=== PATIENT | male | born 1940 | race Caucasian/White ===

== ENCOUNTER → 2020-06-08 07:25 | Outpatient (CLI) | payer MEDICARE, MEDICAID, SELFPAY ==
--- NOTE | 2020-06-08 07:38 | CT_ITS ---
PROCEDURE: CT SINUS WO CON CLINICAL HISTORY: CONTUSION,FALL Posttraumatic pain and swelling COMPARISON: CT CT HEAD/BRAIN WO CON from 06/08/2020 TECHNIQUE: Axial images obtained with sagittal and coronal reformats. All CT scans at the facility use one or more dose reduction, viz: automated exposure control, ma/kV adjustment per patient size (including targeted exams where dose is matched to indication, i.e. head), or iterative reconstruction technique. FINDINGS: Motion artifact does obscure fine detail despite repeating the exam. Comminuted fracture involves the nasal bone which is probably better seen on the head CT. There is mild rightward angulation of the distal fracture fragments. No sinus air-fluid level. Cannot adequately evaluate for infraorbital fracture. The supraorbital region has an unremarkable appearance. Significant motion artifact of the maxilla and mandible. IMPRESSION: Limited exam. Comminuted nasal bone fracture. The infraorbital region and mandible is not well evaluated due to motion. Dictated by: Billy Pickett MD 06/08/2020 10:38 Billy Pickett MD in [facility] 06/08/2020 10:38
--- NOTE | 2020-06-08 07:38 | CT_ITS ---
PROCEDURE: CT HEAD/BRAIN WO CON CLINICAL INDICATION: Head injury with headache/pain, contusion, abrasion or hematoma COMPARISON: CT CT SINUS WO CON from 06/08/2020 TECHNIQUE: Axial images obtained. All CT scans at the facility use one or more dose reduction, viz: automated exposure control, ma/kV adjustment per patient size (including targeted exams where dose is matched to indication, i.e. head), or iterative reconstruction technique. FINDINGS: No midline shift, mass effect, intracranial hemorrhage, hydrocephalus, or extra-axial fluid collection is evident. There is generalized atrophy with hypoattenuation of the periventricular white matter consistent with microangiopathic changes. There are encephalomalacia changes in the left occipital lobe. The calvarium has an unremarkable appearance. No mastoid effusion. No sinus air-fluid level. There is mild soft tissue swelling in the supraorbital region on both sides. Nasal bone fracture is noted. IMPRESSION: No acute intracranial finding Nasal bone fracture Dictated by: Billy Pickett MD 06/08/2020 10:34 Billy Pickett MD in [facility] 06/08/2020 10:34
[2020-06-08 10:54] LABS: Anion Gap 13.1 mEq/L (5-15); Blood Urea Nitrogen 34 mg/dl (9-20); Calcium 9.7 mg/dl (8.4-10.2); Carbon Dioxide 31 mmol/L (22.0-30.0); Chloride 96 mmol/L (98-107); Estimated Glomerular Filt Rate 53 ml/min (>60); GFR (African American) 64 ML/MIN (>60); Glucose 85 mg/dl (74-100); Potassium 4.1 mmoL/L (3.5-5.1); Sodium 136 mmol/L (136-145)
== END ==
PROVIDERS: Nurse Practitioner Family; Visit Provider Internal Medicine Adolescent Medicine
DX: S00.10XA Contusion of unspecified eyelid and periocular area, initial encounter (principal); R41.0 Disorientation, unspecified; W19.XXXA Unspecified fall, initial encounter
CPT/HCPCS: 36415; 70450; 70486; 80048

== ENCOUNTER → 2020-06-26 09:24 | Outpatient (CLI) | payer MEDICARE, MEDICAID, SELFPAY ==
[2020-06-26 14:04] LABS: Chol/HDL Ratio 3.1 (1-3.5); Cholesterol 194 mg/dl (140-200); HDL Cholesterol 63 mg/dl (40-60); Triglycerides 84 mg/dl (30-150); VLDL Cholesterol 17 mg/dL (0-40)
[2020-06-26 14:11] LABS: Basophils % 0.3 % (0.1-2.0); Eosinophils # 0.4 K/mm3 (0.0-0.4); Eosinophils % 4.3 % (0.1-12.0); Hematocrit 33.8 % (42.0-52.0); Hemoglobin 10.9 g/dL (14.1-18.0); Lymphocytes # 0.7 K/mm3 (0.7-4.5); Lymphocytes % 8.4 % (10-50); Mean Corpuscular HGB Conc 32.3 g/dL (31.8-35.4); Mean Corpuscular Hemoglobin 29.8 pg (27.0-31.2); Mean Corpuscular Volume 92.1 fl (80-94); Mean Platelet Volume 8.5 fl (7.4-10.4); Monocytes # 0.5 K/mm3 (0.1-1.0); Monocytes % 6.1 % (1.7-9.3); Neutrophils # 6.6 K/mm3 (1.8-7.8); Neutrophils % 80.9 % (37.0-80.0); Platelet Count 227 K/mm3 (142-424); Red Blood Count 3.66 M/mm3 (4.60-6.20); Red Cell Distribution Width 14.5 % (11.5-17.5); White Blood Count 8.2 K/mm3 (4.8-10.8)
[2020-06-26 14:15] LABS: Direct LDL Cholesterol 108.59 mg/dL (100-129)
[2020-06-26 14:50] LABS: Hemoglobin A1C 5.4 % (4.0-6.0)
[2020-07-06 04:58] LABS: Levetiracetam (Keppra) 32.3 ug/mL (10.0-40.0)
== END ==
PROVIDERS: Visit Provider Nurse Practitioner Family
DX: I10 Essential (primary) hypertension (principal); E78.5 Hyperlipidemia, unspecified; G40.909 Epilepsy, unspecified, not intractable, without status epilepticus; Z79.899 Other long term (current) drug therapy
CPT/HCPCS: 36415; 80061; 80177; 83036; 85025

== ENCOUNTER 2020-08-13 13:14 | Inpatient (IN) | payer MEDICARE, MEDICAID, SELFPAY ==
[2020-08-13] VITALS (27 sets, daily range): BP systolic 78–158; BP diastolic 0–108; PULSE 42–125; RESP 14–26; TEMP 32.1–35.9; O2SAT 81–100; BMI 38.0; BMI 43.0
--- NOTE | 2020-08-13 13:16 | XR_ITS ---
PROCEDURE: XR CHEST PORTABLE CLINICAL HISTORY: hypoxia COMPARISON: No exams were available for comparison FINDINGS: There are low lung volumes. There is mild cardiomegaly without failure. Increased density is present in the right mid lung suggesting atelectasis. Consolidation noted in both lower lobes consistent with bilateral lower lobe pneumonia. IMPRESSION: Low lung volumes with bilateral lower lobe airspace disease/pneumonia and atelectatic change in the right midlung Dictated by: Billy Pickett MD 08/13/2020 13:47 Billy Pickett MD in [facility] 08/13/2020 13:47
--- NOTE | 2020-08-13 13:16 | CT_ITS ---
PROCEDURE: CT HEAD/BRAIN WO CON CLINICAL INDICATION: ams Altered mental status, altered level of consciousness, confusion, disorientation COMPARISON: CT CT HEAD/BRAIN WO CON from 06/08/2020 TECHNIQUE: Axial images obtained. All CT scans at the facility use one or more dose reduction, viz: automated exposure control, ma/kV adjustment per patient size (including targeted exams where dose is matched to indication, i.e. head), or iterative reconstruction technique. FINDINGS: No midline shift, mass effect, intracranial hemorrhage, hydrocephalus, or extra-axial fluid collection is evident. There is generalized atrophy with hypoattenuation of the periventricular white matter consistent with microangiopathic changes.. 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 No mastoid effusion. No sinus air-fluid level. IMPRESSION: No acute intracranial finding Dictated by: Billy Pickett MD 08/13/2020 15:52 Billy Pickett MD in [facility] 08/13/2020 15:52
--- NOTE | 2020-08-13 13:18 | HMH.EDGENADL ---
ED Disposition Clinical Impression: Severe sepsis, Hyponatremia, Acute kidney injury Altered mental status Qualifiers: Altered mental status type: delirium Qualified Code(s): R41.0 - Disorientation, unspecified Disposition: Admitted As Inpatient Condition on Discharge: Fair Referrals: PCP,No [Non-Staff] - - Critical Care Critical Care Time: No Attestation: On , the high probability of a clinically significant, sudden or life threatening deterioration of the following system(s) required my full and direct attention, intervention and personal management. The time I documented below is in addition to time spent performing reported procedures but includes the following listed in this critical care notation. Medical Decision Making - Medical Records Medical records reviewed: Yes: I reviewed the patient's medical records. - Mitchell Inquiry Pt receiving controlled substance: No Vital Signs: 08/13/20 13:15 08/13/20 14:30 08/13/20 14:45 Temperature 96.6 F L Temperature Source Temporal Artery Scan Pulse Rate 76 74 Pulse Rate [Left Radial] 88 Respiratory Rate 26 H 19 20 Blood Pressure 114/48 L 105/68 L Blood Pressure [Right Arm] 105/68 L Blood Pressure Mean [Right Arm] 80 Blood Pressure Source Blood Pressure Source [Right Arm] Automatic Cuff Blood Pressure Position [Right Arm] Sitting 02 Sat by Pulse Oximetry 99 97 96 Oxygen Delivery Method Non-Rebreather Nasal Cannula Nasal Cannula Oxygen Flow Rate (LPM) 15 4 4 08/13/20 16:16 Temperature Temperature Source Pulse Rate 84 Pulse Rate [Left Radial] Respiratory Rate Blood Pressure 118/82 Blood Pressure [Right Arm] Blood Pressure Mean [Right Arm] Blood Pressure Source Automatic Cuff Blood Pressure Source [Right Arm] Blood Pressure Position [Right Arm] 02 Sat by Pulse Oximetry 91 L Oxygen Delivery Method Nasal Cannula Oxygen Flow Rate (LPM) - Lab Data Lab Results 08/13/20 13:16: Specimen Source Right radial, O2 % 5 lpm nc, ABG pH 7.36, ABG pCO2 28.9 L, ABG pO2 96.1, ABG HCO3 15.9 L, ABG Total CO2 16.8 L, ABG O2 Saturation 97, ABG Base Excess -9.6 L, Billy Test Patient unable 08/13/20 13:25: Urine Color Yellow, Urine Appearance Clear, Urine pH 7.0, Ur Specific [place] 1.020, Urine Protein 2+, Urine Glucose (UA) Negative, Urine Ketones Negative, Urine Blood 3+, Urine Nitrate Negative, Urine Bilirubin Negative, Urine Urobilinogen 0.2, Ur Leukocyte Esterase 2+ A, Urine RBC Occasional, Urine WBC Tntc, Urine Bacteria 1+ 08/13/20 13:50: WBC 13.0 H, RBC 3.93 L, Hgb 11.0 L, Hct 33.0 L, MCV 84.0, MCH 28.0, MCHC 33.3, RDW 15.4, Plt Count 208, MPV 9.6, Neut % (Auto) 94.0 H, Lymph % (Auto) 2.8 L, [place] % (Auto) 2.9, Eos % (Auto) 0.3, Baso % (Auto) 0.0 L, Neut # (Auto) 12.2 H, Lymph # (Auto) 0.4 L, [place] # (Auto) 0.4, Eos # (Auto) 0.0, Baso # (Auto) 0.0, Total Counted 100, Neutrophils % (Manual) 93 H, Lymphocytes % (Manual) 2 L, Monocytes % (Manual) 4, Eosinophils % (Manual) 1, Platelet Estimate Normal, RBC Morphology Normal, Acanthocytes (Spur) 1+ 08/13/20 13:50: Sodium 123 L, Potassium 5.2 H, Chloride 91 L, Carbon Dioxide 17 L, Anion Gap 20.2 H, BUN 88 H, Creatinine 4.60 H, Estimated Creat Clear 13, Estimated GFR 12 L*, Est GFR ( Amer) 15 L*, Glucose 78, Calcium 9.1, Total Bilirubin 1.2, AST 65 H, ALT 42, Alkaline Phosphatase 224 H, Troponin I < 0.01, Total Protein 6.5, Albumin 3.3 L, Globulin 3.2, Albumin/Globulin Ratio 1.0 L 08/13/20 13:50: Lactate 2.2 H Result diagrams: 08/13/20 13:50 08/13/20 13:50 Orders (Tests/Meds): ED MEDICATIONS Generic Name Dose Route Start Last Admin Trade Name Freq PRN Reason Stop Dose Admin Ceftriaxone Sodium 2 gm/ 100 mls @ 200 mls/hr 08/13/20 13:30 08/13/20 14:13 Sodium Chloride IV 08/27/20 13:29 200 mls/hr Q24H TEMO Administration Protocol Sodium Chloride 1,000 mls @ 999 mls/hr 08/13/20 15:30 08/13/20 15:30 Sod Chlor 0.9% 1000ml Bag IV 08/13/20 16:30 999 mls/hr .Q1H1M TEMO A
[2020-08-13 13:34] LABS: Microscopic, Urine URINE MICROSCOPIC (MICROSCOPIC)
[2020-08-13 13:41] LABS: ABG Base Excess -9.6 mmol/L (-2.4-2.3); ABG HCO3 15.9 mmhg (22.0-26.0); ABG Oxygen Saturation 97 % (90-100); ABG PCO2 28.9 mmhg (35.0-45.0); ABG PH 7.36 mmol/L (7.35-7.45); ABG PO2 96.1 mmhg (80-100); ABG TCO2 16.8 mmhg (23-27)
[2020-08-13 13:44] LABS: Allen's Test Patient Unable; Oxygen 5 LPM NC %; Source Right Radial
[2020-08-13 14:20] LABS: Eosinophils % 0.3 % (0.1-12.0); Lymphocytes # 0.4 K/mm3 (0.7-4.5); Lymphocytes % 2.8 % (10-50); Mean Corpuscular HGB Conc 33.3 g/dL (31.8-35.4); Mean Platelet Volume 9.6 fl (7.4-10.4); Monocytes # 0.4 K/mm3 (0.1-1.0); Monocytes % 2.9 % (1.7-9.3); Neutrophils # 12.2 K/mm3 (1.8-7.8); Platelet Count 208 K/mm3 (142-424); Red Blood Count 3.93 M/mm3 (4.60-6.20); Red Cell Distribution Width 15.4 % (11.5-17.5)
[2020-08-13 14:23] LABS: MANUAL DIFFERENTIAL MANUAL DIFFERENTIAL (MANUAL DIFF)
[2020-08-13 14:27] LABS: Lactic Acid 2.2 mmol/L (0.7-2.1)
[2020-08-13 14:27] LABS: Appearance,Urine CLEAR (Clear); Blood, Urine 3+ (Negative); Color,Urine YELLOW (Yellow); Glucose,Urine (UA) Negative (Negative); Ketones,Urine Negative (Negative); Leukocyte Esterase,Urine 2+ (Negative); Nitrate,Urine Negative (Negative); Protein,Urine 2+ (Negative); Urobilinogen,Urine 0.2 EU/dl (0.2)
[2020-08-13 14:30] LABS: Bilirubin,Urine Negative (Negative)
[2020-08-13 14:31] LABS: Chloride 91 mmol/L (98-107); Sodium 123 mmol/L (136-145)
[2020-08-13 14:32] LABS: Potassium 5.2 mmoL/L (3.5-5.1)
[2020-08-13 14:34] LABS: Alanine Aminotransferase 42 U/L (12-78); Albumin Level 3.3 g/dl (3.5-5.0); Alkaline Phosphatase 224 U/L (38-126); Anion Gap 20.2 mEq/L (5-15); Aspartate Amino Transferase 65 U/L (17-59); Bilirubin,Total 1.2 mg/dl (0.2-1.3); Carbon Dioxide 17 mmol/L (22.0-30.0); Creatinine Clearance Estimated 13 mL/min (50-200); Estimated Glomerular Filt Rate 12 ml/min (>60); GFR (African American) 15 ML/MIN (>60); Globulin 3.2 g/dL (1.3-3.2); Total Protein,Serum 6.5 g/dl (6.3-8.2)
[2020-08-13 14:35] LABS: Calcium 9.1 mg/dl (8.4-10.2); Glucose 78 mg/dl (74-100)
[2020-08-13 14:37] LABS: Blood Urea Nitrogen 88 mg/dl (9-20)
[2020-08-13 14:39] LABS: Bacteria,Urine 1+ /lpf; RBC,Urine Occasional #/hpf (0-3); WBC,Urine TNTC #/hpf (0-3)
[2020-08-13 14:47] LABS: Troponin I < 0.01 ng/ml (0.00-0.034)
[2020-08-13 14:56] LABS: Acanthocytes 1+; Eosinophils % 1 % (0-3); Lymphocytes % 2 % (10-50); Monocytes % 4 % (2-9); Neutrophils % 93 % (42-76); Total Cells Counted 100
[2020-08-13 14:57] LABS: Platelet Estimate Normal; RBC Morphology Normal
--- NOTE | 2020-08-13 16:15 | PC.NURSE ---
bath mix operator paging solar field installation crew member (Dr. Chong) for Dr. Murray
--- NOTE | 2020-08-13 16:50 | PC.NURSE ---
UNABLE TO OBTAIN REPEAT LACTIC AFTER MULTIPLE ATTEMPTS , DUE TO BEING A HARD STICK. LAB IS GONNA TRY TO OBTAIN
[2020-08-13 17:35] LABS: Troponin I < 0.01 ng/ml (0.00-0.034)
[2020-08-13 18:11] LABS: Reflex Lactic Add Lactic Reflex
[2020-08-13 20:05] LABS: Lactic Acid Follow Up (RFLX 1) 1.9 mmol/L (0.7-2.1)
--- NOTE | 2020-08-13 20:54 | PC.NURSE ---
PT ARRIVED TO THE FLOOR AT 1847. WHILE MOVING PT FROM BED FROM STRETCHER PT WAS VERY COOL TO TOUCH AND EXTREMELY LETHARGIC. RECTAL TEMP WAS 89.8 AND BP WAS 78/PALP. ROB HUGGER WAS APPLIED AND WAS NOTIFIED. ORDERS RECEIVED ( IVF BOLUS, LEVOPHED DRIP AND LR @ 200 ML'S/HR) PT WAS TRANSFERRED TO STEP DOWN UNIT. PT'S BROTHER WHO IS PT'S POA STATED THAT PT WOULD BE A DNR BUT HE IS OKAY WITH STARTING PT ON VASOPRESSORS TO INCREASE BP AND THE ROB HUGGER TO TREAT HYPOTHERMIA. REPORT GIVEN FROM THE ED ALL VITAL SIGNS WERE STABLE. ACCORDING TO PT'S BROTHER PT IS USUALLY VERY TALKATIVE AND ALERT WHEN HE IS AT HIS BASELINE. REPORT HANDOFF TO ADIEL FRAZIER RN.
[2020-08-13 21:36] LABS: POC Glucose,Bedside 90 (70-110)
--- NOTE | 2020-08-13 23:14 | ECG_ITS ---
APPROVED REPORT Exam: Resting ECG HR:125 bpm ECG Measurements Heart Rate 125 AXES QRSd 84 QRS 64 QT 358 T -57 QTc 516 Conclusion Atrial fibrillation with rapid ventricular response Low voltage QRS ST & T wave abnormality, consider inferior ischemia or digitalis effect ST & T wave abnormality, consider anterior ischemia or digitalis effect Abnormal ECG Electronically signed by : Estrada Murray, 08/20/2020 18:06:21
--- NOTE | 2020-08-13 23:40 | PC.NURSE ---
He is restless and confused. Does not answer questions. Continuously trying to take off oxygen. He is on the oren paw r/t hypothermia. Unable to take pics at this time r/t hypothermia. Consent for pics and DNR on chart. He continues on levophed. Receiving oxygen via 50% venti at this time.
[2020-08-14] VITALS (34 sets, daily range): BP systolic 47–175; BP diastolic 25–145; PULSE 40–140; RESP 0–24; TEMP 34.3–36.6; O2SAT 86–96
--- NOTE | 2020-08-14 05:14 | PC.NURSE ---
DIDNT GET WEIGHT ON PATIENT DUE TO KEEPING THE BLANKETS ON TO WARM PATIENT UP.KM
[2020-08-14 05:59] LABS: Basophils % 0.1 % (0.1-2.0); Eosinophils # 0.1 K/mm3 (0.0-0.4); Eosinophils % 0.6 % (0.1-12.0); Hematocrit 32.8 % (42.0-52.0); Hemoglobin 10.9 g/dL (14.1-18.0); Lymphocytes # 0.4 K/mm3 (0.7-4.5); Lymphocytes % 2.3 % (10-50); Mean Corpuscular HGB Conc 33.1 g/dL (31.8-35.4); Mean Corpuscular Hemoglobin 27.8 pg (27.0-31.2); Mean Corpuscular Volume 84.1 fl (80-94); Mean Platelet Volume 9.5 fl (7.4-10.4); Monocytes # 0.6 K/mm3 (0.1-1.0); Monocytes % 3.6 % (1.7-9.3); Neutrophils # 15.7 K/mm3 (1.8-7.8); Neutrophils % 93.5 % (37.0-80.0); Platelet Count 268 K/mm3 (142-424); Red Cell Distribution Width 15.4 % (11.5-17.5); White Blood Count 16.8 K/mm3 (4.8-10.8)
[2020-08-14 06:02] LABS: MANUAL DIFFERENTIAL MANUAL DIFFERENTIAL (MANUAL DIFF)
[2020-08-14 06:06] LABS: Chloride 95 mmol/L (98-107); Potassium 5.6 mmoL/L (3.5-5.1); Sodium 127 mmol/L (136-145)
[2020-08-14 06:09] LABS: Alanine Aminotransferase 45 U/L (12-78); Albumin Level 3.3 g/dl (3.5-5.0); Albumin/Globulin Ratio 1.1 (1.1-1.8); Alkaline Phosphatase 238 U/L (38-126); Anion Gap 20.6 mEq/L (5-15); Aspartate Amino Transferase 68 U/L (17-59); Bilirubin,Total 0.9 mg/dl (0.2-1.3); Carbon Dioxide 17 mmol/L (22.0-30.0); Creatinine Clearance Estimated 23 mL/min (50-200); Estimated Glomerular Filt Rate 12 ml/min (>60); GFR (African American) 15 ML/MIN (>60); Globulin 3.1 g/dL (1.3-3.2); Total Protein,Serum 6.4 g/dl (6.3-8.2)
[2020-08-14 06:10] LABS: Calcium 8.9 mg/dl (8.4-10.2); Glucose 80 mg/dl (74-100)
[2020-08-14 06:16] LABS: Blood Urea Nitrogen 88 mg/dl (9-20)
[2020-08-14 07:01] LABS: POC Glucose,Bedside 85 (70-110)
--- NOTE | 2020-08-14 07:26 | HMH.PHAVTE ---
[facility] Pharmacy VTE Monitoring - Patient Demographics Admission date: 08/13/20 Report Date: 08/14/20 Time: 07:26 Allergies/Adverse Reactions: Patient Allergies No Known Allergies Allergy (Verified 08/13/20 21:53) Height: 1.83 m Weight: 127.006 kg Patient Problems: Current Active Problems Severe sepsis (Acute) Altered mental status (Acute) Hyponatremia (Acute) Acute kidney injury (Acute) - VTE Risk Labs: VTE Related Lab Results Hgb 10.9 g/dL (14.1-18.0) L 08/14/20 05:38 Hct 32.8 % (42.0-52.0) L 08/14/20 05:38 Plt Count 268 K/mm3 (142-424) D 08/14/20 05:38 BUN 88 mg/dl (9-20) H 08/14/20 05:38 Creatinine 4.60 mg/dl (0.66-1.25) H 08/14/20 05:38 Estimated Creat Clear 23 mL/min (50-200) 08/14/20 05:38 VTE Score: 3 VTE Risk Level: Low Risk - Prophylaxis VTE Prophylaxis Ordered?: Yes Types of VTE Prophylaxis: TEDS Knee High Location of Applied Device: Bilateral Lower Extremeties
--- NOTE | 2020-08-14 07:51 | HMH.PHAINT ---
MEDICATION RECONCILIATION COMPLETED USING EXTERNAL FILL HISTORY AND PENITENTIARY MAR
--- NOTE | 2020-08-14 07:54 | HMH.HP ---
*Admission Date: 08/13/20 *Chief complaint: sepsis *History of present illness: 80-year-old gentleman who is a resident of [facility]. History of multiple chronic comorbidities, debility, wheelchair/bedbound. Presented to the ER from the half-way due to concern for worsening confusion/poorly responsive to verbal or painful stimuli. Additionally patient had a decrease in body temperature and suspicion for UTI. Reportedly he had had some gradual worsening clinically over the weekend but symptoms most apparent yesterday. Brought to the ER via EMS. On arrival found to be in septic shock. Initial labs showed acute renal failure with creatinine greater than 4, tachycardia, hypothermic, elevated white cell count, urine grossly abnormal concerning for infection. He was initially treated with ceftriaxone, 2 L bolused IV fluids, and admitted for septic shock. On assessment this morning, patient had been started on Levophed overnight for persistent hypotension. He remains tachycardic blood pressure improving but still hypothermic. Unable to respond to questions. Appears agitated but obtunded. Appropriate saturations in the mid 90s on 50% Ventimask. Very minimal urine output obtained via [place] catheter, urine quite dark and cloudy. [facility] History I have reviewed the patient's past medical history: Yes Medical History: Reports:: Atrial Fibrillation, Gastroesophageal Reflux Disease(GERD), Hyperlipidemia, Hypertension Denies:: Cancer, Diabetes Mellitus Type 1, Diabetes Mellitus Type 2, MRSA *Have you ever received a pneumonia vaccine?: Yes *Have you received a flu vaccine this season?: Yes Other Medical History: Reports: Other (GOUT) Laterality Cases: Right: Arthroscopy Knee Other Surgeries: Yes: Appendectomy Amputation: No Fractures: No - *Social History Smoking Status: Former smoker Alcohol Intake: never *Occupational Status:: disabled Housing: half-way *Travel in the last 8 weeks: None Family Hx:: Unable to obtain Review of Systems - Review of Systems Review of systems:: unable to obtain, pertinent systems reviewed and negative unless documented below (reviewed per chart, unable to obtain per patient) Meds Home Medications Medication Instructions Recorded Confirmed Type allopurinol 100 mg tablet 100 mg PO DAILY 06/19/20 08/13/20 History amlodipine 5 mg tablet 5 mg PO DAILY 06/19/20 08/13/20 History cholecalciferol (vitamin D3) 25 25 mcg PO DAILY 06/19/20 08/13/20 History mcg (1,000 unit) capsule famotidine 20 mg tablet 20 mg PO DAILY 06/19/20 08/13/20 History furosemide 40 mg tablet 40 mg PO 0900 06/19/20 08/14/20 History polyethylene glycol 3350 17 17 g PO DAILY 06/19/20 08/13/20 History gram/dose oral powder Cetirizine HCl [Zyrtec 10mg ODT*] 10 mg PO DAILY 08/13/20 08/13/20 History Furosemide [Furosemide 20mg Tab*] 20 mg PO 1700 08/13/20 08/14/20 History Melatonin 5 mg PO HS 08/13/20 08/13/20 History Oxybutynin Chloride 5 mg PO BID 08/13/20 08/13/20 History levETIRAcetam [Keppra 500mg tablet] 500 mg PO BID 08/13/20 08/13/20 History Ibuprofen [Ibuprofen 400mg 400 mg PO Q6H PRN 08/14/20 08/14/20 History Tablet] Sodium Chloride [[place] Saline] 1 spray NOSTRIL-B QID 08/14/20 08/14/20 History Allergies Allergy/AdvReac Type Severity Reaction Status Date / Time No Known Allergies Allergy Verified 08/13/20 21:53 Exam Vital signs and Labs for Last 24 Hours: Temp Pulse Resp BP Pulse Ox 96.8 F L 120 H 24 91/61 L 95 08/14/20 06:00 08/14/20 06:00 08/14/20 06:00 08/14/20 06:00 08/14/20 06:00 Laboratory Results - last 24 hr 08/13/20 13:16: Specimen Source Right radial, O2 % 5 lpm nc, ABG pH 7.36, ABG pCO2 28.9 L, ABG pO2 96.1, ABG HCO3 15.9 L, ABG Total CO2 16.8 L, ABG O2 Saturation 97, ABG Base Excess -9.6 L, Billy Test Patient unable 08/13/20 13:25: Urine Color Yellow, Urine Appearance Clear, Urine pH 7.0, Ur Specific [place] 1.020, Urine Protein 2+, Urine Glucose (UA) Negative,
[2020-08-14 07:59] LABS: Lymphocytes % 12 % (10-50); Monocytes % 4 % (2-9); Neutrophils % 84 % (42-76); Platelet Estimate Normal; RBC Morphology Normal; Total Cells Counted 100
--- NOTE | 2020-08-14 08:52 | HMH.PHACONS ---
- Pharmacy Consult Date: 08/14/20 Time: 08:52 Referring provider: DR. ROSALES Reason for Consult:: VANCOMYCIN DOSING Allergies and ADEs:: Allergies Allergy/AdvReac Type Severity Reaction Status Date / Time No Known Allergies Allergy Verified 08/13/20 21:53 Home Medications:: Home Medications Medication Instructions Recorded Confirmed Type allopurinol 100 mg tablet 100 mg PO DAILY 06/19/20 08/13/20 History amlodipine 5 mg tablet 5 mg PO DAILY 06/19/20 08/13/20 History cholecalciferol (vitamin D3) 25 25 mcg PO DAILY 06/19/20 08/13/20 History mcg (1,000 unit) capsule famotidine 20 mg tablet 20 mg PO DAILY 06/19/20 08/13/20 History furosemide 40 mg tablet 40 mg PO 0900 06/19/20 08/14/20 History polyethylene glycol 3350 17 17 g PO DAILY 06/19/20 08/13/20 History gram/dose oral powder Cetirizine HCl [Zyrtec 10mg ODT*] 10 mg PO DAILY 08/13/20 08/13/20 History Furosemide [Furosemide 20mg Tab*] 20 mg PO 1700 08/13/20 08/14/20 History Melatonin 5 mg PO HS 08/13/20 08/13/20 History Oxybutynin Chloride 5 mg PO BID 08/13/20 08/13/20 History levETIRAcetam [Keppra 500mg tablet] 500 mg PO BID 08/13/20 08/13/20 History Ibuprofen [Ibuprofen 400mg 400 mg PO Q6H PRN 08/14/20 08/14/20 History Tablet] Sodium Chloride [[place] Saline] 1 spray NOSTRIL-B QID 08/14/20 08/14/20 History Height: 1.83 m Weight: 127.006 kg Laboratory Results:: Laboratory Results - last 24 hr 08/13/20 13:16: Specimen Source Right radial, O2 % 5 lpm nc, ABG pH 7.36, ABG pCO2 28.9 L, ABG pO2 96.1, ABG HCO3 15.9 L, ABG Total CO2 16.8 L, ABG O2 Saturation 97, ABG Base Excess -9.6 L, Billy Test Patient unable 08/13/20 13:25: Urine Color Yellow, Urine Appearance Clear, Urine pH 7.0, Ur Specific [place] 1.020, Urine Protein 2+, Urine Glucose (UA) Negative, Urine Ketones Negative, Urine Blood 3+, Urine Nitrate Negative, Urine Bilirubin Negative, Urine Urobilinogen 0.2, Ur Leukocyte Esterase 2+ A, Urine RBC Occasional, Urine WBC Tntc, Urine Bacteria 1+ 08/13/20 13:50: WBC 13.0 H, RBC 3.93 L, Hgb 11.0 L, Hct 33.0 L, MCV 84.0, MCH 28.0, MCHC 33.3, RDW 15.4, Plt Count 208, MPV 9.6, Neut % (Auto) 94.0 H, Lymph % (Auto) 2.8 L, [place] % (Auto) 2.9, Eos % (Auto) 0.3, Baso % (Auto) 0.0 L, Neut # (Auto) 12.2 H, Lymph # (Auto) 0.4 L, [place] # (Auto) 0.4, Eos # (Auto) 0.0, Baso # (Auto) 0.0, Total Counted 100, Neutrophils % (Manual) 93 H, Lymphocytes % (Manual) 2 L, Monocytes % (Manual) 4, Eosinophils % (Manual) 1, Platelet Estimate Normal, RBC Morphology Normal, Acanthocytes (Spur) 1+ 08/13/20 13:50: Sodium 123 L, Potassium 5.2 H, Chloride 91 L, Carbon Dioxide 17 L, Anion Gap 20.2 H, BUN 88 H, Creatinine 4.60 H, Estimated Creat Clear 13, Estimated GFR 12 L*, Est GFR ( Amer) 15 L*, Glucose 78, Calcium 9.1, Total Bilirubin 1.2, AST 65 H, ALT 42, Alkaline Phosphatase 224 H, Troponin I < 0.01, Total Protein 6.5, Albumin 3.3 L, Globulin 3.2, Albumin/Globulin Ratio 1.0 L 08/13/20 13:50: Lactate 2.2 H 08/13/20 16:50: Troponin I < 0.01 08/13/20 19:44: Lactate 1.9 08/13/20 21:27: POC Glucose 90 08/14/20 02:40: POC Glucose 85 08/14/20 05:38: WBC 16.8 H D, RBC 3.90 L, Hgb 10.9 L, Hct 32.8 L, MCV 84.1, MCH 27.8, MCHC 33.1, RDW 15.4, Plt Count 268 D, MPV 9.5, Neut % (Auto) 93.5 H, Lymph % (Auto) 2.3 L, [place] % (Auto) 3.6, Eos % (Auto) 0.6, Baso % (Auto) 0.1, Neut # (Auto) 15.7 H, Lymph # (Auto) 0.4 L, [place] # (Auto) 0.6, Eos # (Auto) 0.1, Baso # (Auto) 0.0, Total Counted 100, Neutrophils % (Manual) 84 H, Lymphocytes % (Manual) 12, Monocytes % (Manual) 4, Platelet Estimate Normal, RBC Morphology Normal 08/14/20 05:38: Sodium 127 L, Potassium 5.6 H, Chloride 95 L, Carbon Dioxide 17 L, Anion Gap 20.6 H, BUN 88 H, Creatinine 4.60 H, Estimated Creat Clear 23, Estimated GFR 12 L*, Est GFR ( Amer) 15 L*, Glucose 80, Calcium 8.9, Total Bilirubin 0.9, AST 68 H, ALT 45, Alkaline Phosphatase 238 H, Total Protein 6.4, Albumin 3.3 L, Globulin 3.1, Albumin/Globulin Ratio 1.1 Medical History: Reports:: Atrial Fi
--- NOTE | 2020-08-14 09:42 | PC.NURSE ---
Upon assessment this am at 0720 pt had 2 new iv's started and 2 iv's that no longer worked removed. pt was able to be taken off of the levophed drip related to bp with map greater than 65. pt rectal temp was checked and was 97.7. pt was repositioned in the bed from his left side to his back. pt rectal temp was rechecked at 0840 and was noted to be 97.2. oren paws and warm blankets remained in place.
--- NOTE | 2020-08-14 10:15 | PC.NURSE ---
pt is minimally responsive. thrashing and rolling around in the bed. pt is noted to have scleral edema in bilateral eyes. pt has 3+ pitting edema in ble. legs are extremely red. pt has several wounds noted to ble. and the back of his right thigh.
--- NOTE | 2020-08-14 12:23 | PC.NURSE ---
it was noted at 1119 that the pts o2 dropped from 89-90 to 85 on 50 venti mask. pt hr was noted at 96. after walking 40 ft to pt bedside, o2 was noted to be 70% and hr had dropped to 30's. pt became apenic then pt become cyanotic. Dr Edgar called and notified that no audible, palpable or detectable pulse or respirations noted. family notified at 1126 when they called to check on pt status. [address] 1138 [employer] contacted by Erika Perkins RN 1147 Peter Theodore returned call and cleared patient as a information technology manager's case 1150 HANSA contacted by Erika Perkins pt ruled out for donation by [place] 4523 pt brother arrived and notified they would like to use [facility] in [place]. 1217 home contacted at this time. 1240 Post Mortem care being performed.
--- NOTE | 2020-08-14 13:43 | PC.NURSE ---
back of the left thigh
--- NOTE | 2020-08-14 13:46 | PC.WOUNDNOTE ---
inside of left leg
--- NOTE | 2020-08-14 13:47 | PC.WOUNDNOTE ---
LEFT ANKLE left ankle
--- NOTE | 2020-08-14 13:51 | PC.WOUNDNOTE ---
BEND OF THE KNEE RIGHT LOWER EXTREMITY
--- NOTE | 2020-08-14 13:52 | PC.WOUNDNOTE ---
BACK OF THE RIGHT THIGH
--- NOTE | 2020-08-14 13:52 | PC.WOUNDNOTE ---
EXCORIATED PERINEAL AREA
--- NOTE | 2020-08-14 13:58 | P.DN_ITS ---
Discharge Sum: Prov - Provider Primary care physician: Dionne Muñiz APRN Visit Care Team Role Provider Type Dionne Muñiz APRN Primary Care Provider Nurse Practitioner Bebo Solis MD Emergency Provider ER Physician Estrada Murray MD Attending Provider Staff Physician Estrada Chong MD Admit Provider Staff Physician Admitting clinician: Toñito Edgar Attending physician on admission: Toñito Edgar Pronouncing clinician: Toñito Edgar Discharge Sum: Summary - Date and Time Date of admission: 08/13/20 18:52 Date of : 08/14/20 Time of : 11:00 - Hospital Course prior to Hospital Course Information: 80-year-old male admitted for septic shock. On admission found to have acute hypoxemic respiratory failure, acute kidney failure with oliguria, septic shock necessitating Levophed, hypothermia, and cultures/studies suggestive of pyelonephritis. He was initiated on broad-spectrum antibiotics, septic protocol including fluids and pressors. Continued to remain clinically tenuous with slow improvement in his body temperature, poor urine output, and poorly responsive on exam. Patient's POA, his brother, stated patient was DNR and wanted everything done except for ACLS. Shortly after morning rounds, patient was able to wean off of vasopressor support. He remained quite tachycardic with significant oxygen requirement. When time for repositioning, nursing went to adjust patient and it was noted that his breathing abruptly changed, it is stated he had abrupt change in heart rate and became bradycardic. Shortly thereafter went into PEA and became apneic. Attending was contacted secondary to clinical status change. On arrival to bedside, patient had . Exam noted to be absent for respiratory drive/respirations, absent heart sounds, absent pulse. Pupils fixed and dilated. - Summary Details: Cardiac arrest as a complication of Septic shock due to pyelonephritis from Morganella morganii - Additional Data Confirmation of as documented by pronouncing clinician: no pulse, no respirations, no heart sounds, pupils fixed and dilated Family: not available Attending/PCP notified?: Yes Attending physician: Estrada Murray MD Was code activated?: No Autopsy requested?: No supervisory examiner notified?: Yes Organ bank notified?: Yes Advance directives: Yes Hospice patient?: No
--- NOTE | 2020-08-14 13:59 | P.DN_ITS ---
Pronouncement Note - Date and Time of Date of : 08/14/20 Time of : 11:00 - PCOD Preliminary cause of : Urosepsis - Additional Data Confirmation of : no pulse, no respirations, no heart sounds, pupils fixed and dilated Family: contacted Attending/PCP notified?: Yes Attending physician: Estrada Murray MD Was code activated?: No Autopsy requested?: No forensic science examiner notified?: Yes Organ bank notified?: Yes Advance directives: No (not on file at [facility], may be available at [facility])
== END 2020-08-14 15:30 | disposition expired | DRG 871 ==
LOC: ER 16:44 → 2ND 08-14 07:41
PROVIDERS: Admitting Provider Family Medicine; Emergency Provider Emergency Medicine; PCP Nurse Practitioner Family; Visit Provider Internal Medicine Adolescent Medicine
DX: A41.9 Sepsis, unspecified organism (principal); R65.21 Severe sepsis with septic shock; J96.01 Acute respiratory failure with hypoxia; J18.9 Pneumonia, unspecified organism; E87.1 Hypo-osmolality and hyponatremia; N17.9 Acute kidney failure, unspecified; E87.2 Acidosis; N10 Acute pyelonephritis; G40.909 Epilepsy, unspecified, not intractable, without status epilepticus; R68.0 Hypothermia, not associated with low environmental temperature; I10 Essential (primary) hypertension; K21.9 Gastro-esophageal reflux disease without esophagitis; E78.5 Hyperlipidemia, unspecified; M10.9 Gout, unspecified; Z87.891 Personal history of nicotine dependence; Z20.822 Contact with and (suspected) exposure to COVID-19; Z68.38 Body mass index [BMI] 38.0-38.9, adult; Z87.820 Personal history of traumatic brain injury; Z74.01 Bed confinement status; E87.5 Hyperkalemia; D64.89 Other specified anemias; E86.0 Dehydration; E66.01 Morbid (severe) obesity due to excess calories; Z66 Do not resuscitate
CPT/HCPCS: 36415; 70450; 71045; 80053; 81001; 82803; 82962; 83605; 84484; 85007; 85025; 87040; 87086; 87088; 87186; 93005; 94760; 96365; 96366; 96367; 96375; 99284; J0456; J1953; J3370; U0003